=== PATIENT | male | born 1945 | race Caucasian/White ===

== ENCOUNTER → 2016-04-27 | Outpatient (CLI) | payer MEDICARE, BC ==
[~2016-04-27] MED LIST: CETI10TA PO; CYAN100071 PO; FENO145T25 PO; METO-429; NAPR220C2 PO; NORVASC; PYRI50CA PO
--- NOTE | 2016-04-27 14:22 | RADRPT ---
PROCEDURE: XR Pelvis and Hips. CLINICAL INDICATION: Pelvic pain. Bilateral hip pain. TECHNIQUE: Five views. Frontal pelvis. Frontal and lateral right hip. Frontal and lateral left hip. COMPARISON: 02/27/2013. FINDINGS: There are bilateral total hip arthroplasties. These appears satisfactory with no fracture, dislocat ion, or loosening. The soft tissues are normal. There is no lytic or blastic lesion. The upper pelvis is not completely included on the images. IMPRESSION: 1. Satisfactory postoperative appearance of both hips. 2. No acute abnormality. 3. No change from 02/27/2013. RPTAT: QQ .Michael Case MD, MD Date Time Electronically viewed and signed by .Michael Case MD, on 04/27/2016 14:22 .R/
--- NOTE | 2016-04-27 18:44 | HKNOTE ---
DATE OF SERVICE: 04/27/2016 The patient comes in for a checkup on his hips. He has had bilateral hip replacements. He had a ri ght hip replacement with an ASR socket in 2007; he had a left hip replacement in 2012. He has been totally delighted with the result of his surgery. Both hips feel "perfect." They feel like "normal hips." PHYSICAL EXAMINATION: GENERAL: The patient is a fit-looking 70-year-old male. VITAL SIGNS: Height 5 feet 7, weight 190 pounds, blood pressure 130/75, temperature 98.7. HIPS: Both hips have full range of motion without pain. IMAGING: Plain x-rays of his pelvis and hips obtained today show perfect bilateral hip replacements . All components are well aligned and well attached to the bone. No sign of any loosening or any other problem. DISCUSSION: The patient had an ASR hip replacement on the right side. The cobalt and chromium leve ls have been consistently low. The last one was obtained on 02/19/2014 when the cobalt was 2.6 and the chromium 0.2. Nonetheless, the patient is being sent for repeat cobalt and chromium levels today. He is advised t hat it is highly unlikely that he will have a problem with the ASR hip if he has not had problem by now, but it is still possible. He should return for reevaluation if he has any pain in either hip. If his cobalt and chromium levels are abnormal, I will give him a call. Dictated By: JOSH GA/JEANINE Conf#: [id number] DID#: [id number]
== END | disposition home or self-care (01) ==
LOC: HKI 13:20
DX: Z47.1 Aftercare following joint replacement surgery (principal); Z96.643 Presence of artificial hip joint, bilateral
CPT/HCPCS: 73522; G0463